=== PATIENT | female | born 1945 | race Hispanic/Latino ===

== ENCOUNTER → 2022-05-24 | Outpatient (CLI) | payer OTHER | END | disposition home or self-care (01) | LOC: SHCH 14:17 | PROVIDERS: ATTEND Internal Medicine Cardiovascular Disease | DX: I87.2 Venous insufficiency (chronic) (peripheral) (principal); I83.92 Asymptomatic varicose veins of left lower extremity; I10 Essential (primary) hypertension; E78.5 Hyperlipidemia, unspecified | CPT/HCPCS: 93971 ==